=== PATIENT | female | born 1960 | race American Indian/Alaskan Native ===

== ENCOUNTER 2016-11-25 09:05 | Day surgery (SDC) | payer MEDICAID ==
[2016-11-23 08:17] VITALS: BMI 37.0
[2016-11-25] MEDS ORDERED: Propofol 10 mg/ml Inj (20 ML) ONE (12:31)
[2016-11-25] MEDS ORDERED: Midazolam 2 MG/2 ML VIAL ONE (12:31)
[2016-11-25] MEDS ORDERED: Lidocaine 1% Inj (20ml) ONE (12:36)
[2016-11-25] MEDS ORDERED: ceFAZolin IV 1 gm in Dextrose 1 GM/50 ML BAG IVPB ONE (12:36)
[2016-11-25] MEDS ORDERED: Bupivacaine HCl 0.25% PF (10 ml) Inj ONE (12:36)
[2016-11-25] MEDS ORDERED: Lactated Ringer's 1,000 ML IV ONE ×2 (12:54)
[2016-11-25] MEDS ORDERED: Lactated Ringer's 1,000 ML IV SCH (14:00)
[2016-11-25] MEDS: HYDROmorphone 0.5 mg/0.5 ml ISec IVP PRN ×2 (14:07→14:29)
[2016-11-25] MEDS ORDERED: Lactated Ringer's 500 ML IV ONE (14:45)
[2016-11-25] MEDS ORDERED: Oxycodone/Acetaminophen 5/325 mg Tab PO PRN (16:06)
[2016-11-25 16:18] VITALS: RESP 18
[2016-11-25 16:56] VITALS: BP 135/78; PULSE 73; TEMP 97.5; O2SAT 95
--- NOTE | 2016-12-18 08:45 | OP ---
PROCEDURE DATE: 11/25/2016 DATE OF : 1960 PREOPERATIVE DIAGNOSIS: Vascular tumor of the left leg. POSTOPERATIVE DIAGNOSIS: Vascular tumor of the left leg. PROCEDURE PERFORMED: Wide deep excision vascular tumor in the left leg with greater than 30 cm2, adjacent tissue transfer closure. SURGEON: Dr. Rajiv Villaseñor. TYPE OF ANESTHESIA: General. ESTIMATED BLOOD LOSS: 40 mL. POSTOPERATIVE CONDITION: Stable. INDICATIONS: This is a 56-year-old female who presents with a painful 5-cm vascular tumor in the left leg, who now undergo wide deep excision. DESCRIPTION OF PROCEDURE: The patient taken to the operating room, IV sedation was administered, the left leg was prepped and draped. Generous amounts of local anesthesia was infiltrated. A standard elliptical incision was made surrounding the mass, which was dissected into the fascial layer and removed. Bleeding was controlled using the Bovie. Larger blood vessels were repaired and large tissue defect was noted greater than 30 cm2. An adjacent tissue transfer closure was performed by widely immobilizing and undermining tissue, superior and inferiorly using the Bovie and using multilayer of Monocryl, subcuticular Monocryl and glue. The patient tolerated the procedure well and returned to recovery in stable condition. Rajiv Villaseñor MD
== END 2016-11-25 17:00 | disposition home or self-care (01) ==
LOC: C.SDS 09:05
PROVIDERS: ATTEND Surgery
DX: D48.7 Neoplasm of uncertain behavior of other specified sites (principal); I83.10 Varicose veins of unspecified lower extremity with inflammation
CPT/HCPCS: 13121; 13122; 27337; 88304; J0690; J1170; J2250; J2405; J2704; J3010; J7120